=== PATIENT | male | born 1985 | race Caucasian/White ===

== ENCOUNTER 2016-08-20 14:30 | Emergency (ER) | payer OTHER ==
[~2016-08-20] VITALS: Ht 177.8 cm; Wt 72.1 kg
--- NOTE | ~2016-08-20 | EKG ---
[place] [address] [employer] [place] [address] ELECTROCARDIOGRAM REPORT Name: DHRUV ALANIS Room #: DEP BLAYNE Mejia#: [id number] Admission: 08/20/16 Attend Phys: Discharge: 08/20/16 Date of : 81 Report #: [id number] THIS REPORT FOR: //name// [facility] ED Test Date: 2016-08-20 Test Time: 14:48:34 Pat Name: DHRUV ALANIS Department: Room: Gender: M [employer] Architect: Nam CHAVEZ : 1985 Requested By: Clary Alanis Order Number: [id number] MD: Harpreet Phipps Measurements Intervals [place] Rate: 93 P: 13 [place]: 156 QRS: 25 QRSD: 88 T: 35 QT: 361 QTc: 449 Interpretive Statements Sinus rhythm ST elev, probable normal early repol pattern No previous ECG available for comparison Electronically Signed On 08-25-2016 12:19:00 CDT by Harpreet Phipps [email or web address] <ELECTRONICALLY SIGNED> By: Harpreet Phipps MD 08/25/16 1219 [id number] 1448 MD SHABANA Mcclure
[2016-08-20 15:17] LABS: BASOPHILS 0.5 % (0.0-2.0); EOSINOPHILS 0.4 % (0.0-3.0); HEMATOCRIT 41.3 % (42.0-52.0); HEMOGLOBIN 13.9 gm/dL (14.0-18.0); LYMPHOCYTES 15.8 % (24.0-44.0); MCH 28.5 pg (26.0-34.0); MCHC 33.7 g/dL (28.0-37.0); MCV 84.4 fL (80.0-100.0); MONOCYTES 11.1 % (1.0-8.0); PLATELET COUNT 318 thou/uL (150-400); POLYS 72.2 % (36.0-66.0); RBC 4.89 mil/uL (4.50-6.00); RDW 13.7 % (10.5-14.5); WBC 12.5 thou/uL (4.0-11.0)
[2016-08-20 15:18] LABS: MANUAL DIFF NO
[2016-08-20 16:52] LABS: CALCIUM 8.7 mg/dL (8.5-10.1); CREATININE 0.7 mg/dL (0.6-1.3)
[2016-08-20 16:54] LABS: POTASSIUM 4.6 mmol/L (3.5-5.1)
[2016-08-20] MEDS ORDERED: DILANTIN30 MG PO (16:59)
[2016-08-20] MEDS ORDERED: GABITRIL12 MG PO (16:59)
[2016-08-20] MEDS ORDERED: VIMPAT200 MG PO (17:00)
[2016-08-20] MEDS ORDERED: HYDROCODONE-AP1 EAC6 PO (17:00)
[2016-08-20] MEDS ORDERED: LYRICA 50 MG50 MG PO (17:00)
[2016-08-20] MEDS ORDERED: ZETIA10 MG PO (17:01)
[2016-08-20] MEDS ORDERED: UNICOMPLEX M TA1 TA1 PO (17:01)
[2016-08-20] MEDS ORDERED: LEVOTHYROXIN0.112 M1 PO (17:01)
[2016-08-20] MEDS ORDERED: POTASSIUM20 PO (17:01)
[2016-08-20] MEDS ORDERED: FLORINEF ACETA0.1 MG PO (17:01)
[2016-08-20] MEDS ORDERED: VITAMIN D2000 UNIT PO (17:02)
[2016-08-20] MEDS ORDERED: CITRACAL D + H1 EACH PO (17:02)
[2016-08-20] MEDS ORDERED: OMEGA-31000 M1 PO (17:02)
[2016-08-20 17:20] VITALS: BP 123/88
== END 2016-08-20 17:46 | disposition home or self-care (01) ==
LOC: ER 14:30
PROVIDERS: Emergency Medicine
DX: B34.9 Viral infection, unspecified (principal); Z88.8 Allergy status to other drugs, medicaments and biological substances; Z88.1 Allergy status to other antibiotic agents